=== PATIENT | female | born 1990 ===

== ENCOUNTER → 2021-01-04 | Outpatient (CLI) | payer OTHER | END | disposition home or self-care (01) | LOC: LAB 12:31 → LAB SHORT 12:31 | DX: D22.5 Melanocytic nevi of trunk (principal); D22.61 Melanocytic nevi of right upper limb, including shoulder | CPT/HCPCS: 88305 ==

== ENCOUNTER → 2024-06-23 | Outpatient (CLI) | payer OTHER ==
[2024-06-23 16:46] LABS: BASOPHILS ABSOLUTE AUTO 0.01 K/mm3 (0.00-0.23); BASOPHILS PERCENT AUTO 0 % (0-2); EOSINOPHILS ABSOLUTE AUTO 0.02 K/mm3 (0.00-0.68); EOSINOPHILS PERCENT AUTO 0 % (0-6); Hematocrit 42.2 % (33.0-51.0); Hemoglobin 14.2 g/dL (11.5-16.0); IMMATURE GRAN ABSOLUTE AUTO 0.01 K/mm3 (0.00-0.10); IMMATURE GRAN PERCENT AUTO 0 % (0-1); LYMPHOCYTES ABSOLUTE AUTO 0.95 K/mm3 (0.84-5.20); LYMPHOCYTES PERCENT AUTO 18 % (21-46); MONOCYTES ABSOLUTE AUTO 0.35 K/mm3 (0.16-1.47); MONOCYTES PERCENT AUTO 7 % (4-13); Mean Corpuscular HGB 32.7 pg (26.0-34.0); Mean Corpuscular HGB Conc 33.6 g/dL (31.5-36.5); Mean Corpuscular Volume 97 fL (80-100); Mean Platelet Volume 11.2 fL (9.1-12.4); NEUTROPHILS ABSOLUTE AUTO 3.91 K/mm3 (1.96-9.15); NEUTROPHILS PERCENT AUTO 74 % (41-73); Platelet Count 198 K/mm3 (150-400); RDW Coefficient Variation 12.1 % (11.7-14.2); Red Blood Cell Count 4.34 M/mm3 (3.80-5.20); White Blood Cell Count 5.25 K/mm3 (4.00-11.30)
[2024-06-25 08:16] LABS: HEPATITIS B SURFACE ANTIGEN Negative (Negative)
[2024-06-25 09:53] LABS: HIV 1,2 COMBO ANTIGEN/ANTIBODY Negative (Negative)
[2024-06-25 11:37] LABS: HEPATITIS C AB CIA INTERP Negative (Negative); HEPATITIS C ANTIBODY CIA INDEX <0.02 IV
[2024-07-01 10:06] LABS: APTIMA MEDIA TYPE Urine; C. TRACHOMATIS BY TMA Negative (Negative); N. GONORRHOEAE BY TMA Negative (Negative); SPECIMEN SOURCE Urine
== END | disposition home or self-care (01) ==
LOC: LAB 12:58 → LAB SHORT 12:58
PROVIDERS: Registered Nurse Community Health
DX: Z34.91 Encounter for supervision of normal pregnancy, unspecified, first trimester (principal)
CPT/HCPCS: 84443; 86803; 87340; 87389; 87491; 87591

== ENCOUNTER → 2024-10-05 | Outpatient (CLI) | payer OTHER ==
[2024-10-05 19:57] LABS: Hematocrit 36.5 % (33.0-51.0); Hemoglobin 12.4 g/dL (11.5-16.0)
== END | disposition home or self-care (01) ==
LOC: LAB SHORT 18:57 → LAB 18:57
PROVIDERS: Registered Nurse Community Health
DX: Z34.93 Encounter for supervision of normal pregnancy, unspecified, third trimester (principal)
CPT/HCPCS: 82950; 85014; 85018

== ENCOUNTER → 2024-12-02 | Outpatient (CLI) | payer OTHER | END | disposition home or self-care (01) | LOC: LAB SHORT 15:20 | DX: Z34.93 Encounter for supervision of normal pregnancy, unspecified, third trimester (principal) | CPT/HCPCS: 87081; 87150 ==

== ENCOUNTER 2025-01-08 07:20 | Inpatient (IN) | payer OTHER ==
[2025-01-08] VITALS (14 sets, daily range): BP systolic 98–134; BP diastolic 59–87
[~2025-01-08] VITALS: Ht 160 cm; Wt 72.2 kg
[2025-01-08] MEDS ORDERED: OXYTOCIN/RINGER'S LACTATE 500 ML IV PRN (07:35)
[2025-01-08] MEDS ORDERED: Misoprostol 200 MCG Tab BC PRN (07:35)
[2025-01-08] MEDS ORDERED: Lactated Ringer's 1,000 ML IV SCH ×3 (07:35→20:15)
[2025-01-08] MEDS ORDERED: Lactated Ringer's 1,000 ML IV PRN ×2 (07:35→19:10)
[2025-01-08] MEDS ORDERED: Misoprostol 200 MCG Tab PR PRN ×2 (07:35→20:10)
[2025-01-08] MEDS ORDERED: Carboprost Tromethamine 250 MCG/ML 1ML Amp IM PRN (07:35)
[2025-01-08] MEDS ORDERED: Ondansetron HCl 2 MG / ML 2ML Vial IV PRN (07:35)
[2025-01-08] MEDS ORDERED: FentaNYL 2mcg/ml-Bup 0.1% Epd 250 ML EPI PRN (07:35)
[2025-01-08] MEDS ORDERED: Oxytocin 10 Unit / ML Vial IM PRN (07:35)
[2025-01-08] MEDS ORDERED: Acetaminophen 500 MG Tab PO PRN (07:35)
[2025-01-08] MEDS ORDERED: ePHEDrine Sulfate 50 MG/ML 1ML Injection XX PRN (07:35)
[2025-01-08] MEDS ORDERED: Tranexamic Acid 100 ML IV SCH (07:35)
[2025-01-08] MEDS ORDERED: Methylergonovine Maleate 0.2MG / ML 1ML Amp IM PRN ×2 (07:35→20:15)
[2025-01-08] MEDS ORDERED: Calcium Carbonate 500 MG Tab Chew PO SCH (07:40)
[2025-01-08 08:32] LABS: BASOPHILS ABSOLUTE AUTO 0.01 K/mm3 (0.00-0.23); BASOPHILS PERCENT AUTO 0 % (0-2); EOSINOPHILS ABSOLUTE AUTO 0.03 K/mm3 (0.00-0.68); EOSINOPHILS PERCENT AUTO 0 % (0-6); Hematocrit 39.2 % (33.0-51.0); Hemoglobin 13.3 g/dL (11.5-16.0); IMMATURE GRAN ABSOLUTE AUTO 0.01 K/mm3 (0.00-0.10); IMMATURE GRAN PERCENT AUTO 0 % (0-1); LYMPHOCYTES ABSOLUTE AUTO 1.43 K/mm3 (0.84-5.20); LYMPHOCYTES PERCENT AUTO 20 % (21-46); MONOCYTES ABSOLUTE AUTO 0.52 K/mm3 (0.16-1.47); MONOCYTES PERCENT AUTO 7 % (4-13); Mean Corpuscular HGB 32.7 pg (26.0-34.0); Mean Corpuscular HGB Conc 33.9 g/dL (31.5-36.5); Mean Corpuscular Volume 96 fL (80-100); Mean Platelet Volume 11.9 fL (9.1-12.4); NEUTROPHILS ABSOLUTE AUTO 5.03 K/mm3 (1.96-9.15); NEUTROPHILS PERCENT AUTO 72 % (41-73); Platelet Count 158 K/mm3 (150-400); RDW Coefficient Variation 13.6 % (11.7-14.2); RDW Standard Deviation 47.9 fL (35.1-46.3); Red Blood Cell Count 4.07 M/mm3 (3.80-5.20); White Blood Cell Count 7.03 K/mm3 (4.00-11.30)
--- NOTE | 2025-01-08 10:23 | NUR ---
PT DECLINES MONITORING AT THIS TIME.
--- NOTE | 2025-01-08 12:28 | NUR ---
Pt declines EFM at this time.
[2025-01-08] MEDS ORDERED: OXYTOCIN/RINGER'S LACTATE 500 ML IV SCH ×2 (15:50→20:15)
[2025-01-08] MEDS ORDERED: Calcium Carbonate 500 MG Tab Chew PO PRN (19:10)
[2025-01-08] MEDS ORDERED: Docusate Sodium 100 MG Cap PO PRN (20:10)
[2025-01-08] MEDS ORDERED: Witch Hazel/Glycerin PADS TOP PRN (20:10)
[2025-01-08] MEDS ORDERED: FLU VACC TS2024-25(6MOS UP)/PF 45 MCG/0.5 ML SYRINGE IM SCH (20:10)
[2025-01-08] MEDS ORDERED: Benzocaine Topical Anesthetic Spray 60GM TOP PRN (20:10)
[2025-01-08] MEDS ORDERED: Acetaminophen 325 MG TABLET PO PRN (20:10)
[2025-01-08] MEDS ORDERED: Ibuprofen 400 MG Tab PO PRN (20:15)
[2025-01-08] MEDS ORDERED: Acetaminophen/Codeine 300-30 mg PO PRN (20:15)
[2025-01-08] MEDS ORDERED: Oxytocin 10 Unit / ML Vial IM ONE (20:15)
[2025-01-08] MEDS ORDERED: Ketorolac Tromethamine 30mg Vial IV PRN (20:20)
[2025-01-09 03:55] VITALS: BP 99/54
[2025-01-09 07:44] VITALS: BP 118/72
--- NOTE | 2025-01-09 07:56 | NUR ---
QBL PT REPORTED TO PREVIOUS NURSE PASSING OF BASEBALL SIZE CLOT. QBL 150 DOCUMENTED BY PREVIOUS NURSE.
[2025-01-09] MEDS ORDERED: Prenatal Vit/FE Fumarate/FA 1 Tab PO SCH (09:00)
--- NOTE | 2025-01-09 11:37 | NUR ---
DISCHARGE PT EDUCATED ON DISCHARGE AND FOLLOW UP PLANS. PT BANDS AND MATCHED. DISCHARGE PAPERS SIGNED AND FAMILY ESCORTED TO VEHICLE.
== END 2025-01-09 11:28 | disposition home or self-care (01) | DRG 807 ==
LOC: OBS 07:20 → BC 07:20 → OBS 07:33 → BC 07:35
PROVIDERS: ADMIT Registered Nurse Community Health
PROC: 10E0XZZ Delivery of Products of Conception, External Approach (ICD-10-PCS; principal; 2025-01-08)
PROC: 10907ZC Drainage of Amniotic Fluid, Therapeutic from Products of Conception, Via Natural or Artificial Opening (ICD-10-PCS; 2025-01-08)
PROC: 4A1HXCZ Monitoring of Products of Conception, Cardiac Rate, External Approach (ICD-10-PCS; 2025-01-08)
DX: O48.0 Post-term pregnancy (principal); Z37.0 Single live birth; Z3A.41 41 weeks gestation of pregnancy; O70.0 First degree perineal laceration during delivery
CPT/HCPCS: 36415; 85025; 86850; 86900; 86901; A9270; J2590; J7120